=== PATIENT | male | born 1955 | race African-American/Black ===

== ENCOUNTER 2022-10-12 23:57 | Inpatient (IN) | payer MEDICARE, MEDICAID ==
[~2022-10-12] VITALS: Ht 170.2 cm; Wt 64.9 kg
[2022-10-13] MEDS ORDERED: SODIUM CHLORIDE 0.9% 1000ML BAG (SEPSIS BOLUS) IV ONE (00:45)
[2022-10-13 01:16] LABS: BASOPHILS % 0.5 % (0.0-2.0); EOSINOPHILS % 1.2 % (0.0-5.0); HEMATOCRIT. 40.7 % (42.0-52.0); HEMOGLOBIN. 13.6 g/dL (14.0-18.0); LYMPHOCYTES % 13.4 % (20.0-50.0); MEAN CORPUSCULAR HEMOGLOBIN 31.3 pg (28.0-32.0); MEAN CORPUSCULAR VOLUME 93.8 fL (80.0-94.0); MEAN PLATELET VOLUME 8.2 fl (7.4-10.4); MONOCYTES % 5.7 % (2.0-8.0); NEUTROPHILS % 79.2 % (40.0-76.0); PLATELET 283 x1000/uL (130-400); RED BLOOD CELL COUNT 4.35 mill/uL (4.7-6.1); RED CELL DISTRIBUTION WIDTH 14.4 % (11.6-14.6)
[2022-10-13 01:44] LABS: CHLORIDE 110 mEq/L (98-107)
[2022-10-13] MEDS ORDERED: ASPIRIN 81MG TABLET PO ONE (02:30)
[2022-10-13] MEDS ORDERED: ONDANSETRON HCL 4MG/2ML INJ IV PRN (19:00)
[2022-10-13] MEDS ORDERED: HYDROCODONE/ACETAMINOPHEN 5/325MG TABLET PO PRN (19:00)
[2022-10-13] MEDS ORDERED: ACETAMINOPHEN 325MG TABLET PO PRN (19:00)
[2022-10-13] MEDS ORDERED: DOCUSATE SODIUM 100MG CAPSULE PO PRN (19:00)
[2022-10-13] MEDS ORDERED: NALOXONE HCL 0.4MG/ML VIAL IV PRN (19:15)
[2022-10-13 20:00] VITALS: BP 151/62; PULSE 82; RESP 18; TEMP 98.1
[2022-10-13] MEDS: ENOXAPARIN 40MG/0.4ML SYR SUBCUT SCH (21:06)
[2022-10-14] VITALS (7 sets, daily range): BP systolic 123–157; BP diastolic 50–71; PULSE 57–82; RESP 17–22; TEMP 97.1–98.1
[2022-10-14 04:58] LABS: CLARITY URINE CLEAR (CLEAR); COLOR URINE YELLOW (YELLOW); KETONES URINE NEGATIVE (NEGATIVE); LEUKOCYTE ESTERASE URINE NEGATIVE (NEGATIVE); NITRITE URINE NEGATIVE (NEGATIVE); OCCULT BLOOD URINE NEGATIVE (NEGATIVE); PROTEIN URINE NEGATIVE (NEGATIVE); SPECIFIC GRAVITY URINE 1.022 (1.005-1.030); UROBILINOGEN URINE 0.2 E.U./dL (0.2-1.0)
[2022-10-14 05:38] LABS: *AMPHETAMINES SCREEN URINE NEGATIVE (NEGATIVE); *BARBITURATES SCREEN URINE NEGATIVE (NEGATIVE); *BENZODIAZEPINES SCREEN URINE NEGATIVE (NEGATIVE); *COCAINE SCREEN URINE NEGATIVE (NEGATIVE); CANNABINOID URINE SCREEN PRESUMTIVE POSITIVE (NEGATIVE); METHADONE URINE SCREEN NEGATIVE (NEGATIVE); OPIATES URINE SCREEN NEGATIVE (NEGATIVE); PHENCYCLIDINE URINE SCREEN NEGATIVE (NEGATIVE)
[2022-10-14 06:04] LABS: BASOPHILS % 1.3 % (0.0-2.0); EOSINOPHILS % 1.9 % (0.0-5.0); HEMATOCRIT. 39.6 % (42.0-52.0); HEMOGLOBIN. 13.2 g/dL (14.0-18.0); MEAN CORPUSCULAR HEMOGLOBIN 31.3 pg (28.0-32.0); MEAN CORPUSCULAR VOLUME 93.7 fL (80.0-94.0); MEAN PLATELET VOLUME 8.4 fl (7.4-10.4); MONOCYTES % 6.8 % (2.0-8.0); PLATELET 275 x1000/uL (130-400); RED BLOOD CELL COUNT 4.23 mill/uL (4.7-6.1); RED CELL DISTRIBUTION WIDTH 14.5 % (11.6-14.6)
[2022-10-14 06:09] LABS: CHLORIDE 111 mEq/L (98-107)
[2022-10-14 06:25] LABS: PHOSPHORUS 3.1 mg/dL (2.5-4.9); T4 FREE 0.86 ng/dL (0.76-1.46)
[2022-10-14] MEDS: SODIUM CHLORIDE 0.9% 1,000 ML IV SCH ×2 (12:48)
[2022-10-14] MEDS: ENOXAPARIN 40MG/0.4ML SYR SUBCUT SCH (20:56)
[2022-10-15] VITALS: BP_SYST 126; BP_SYST 136; BP_SYST 143; BP_SYST 150; BP_DIAS 47; BP_DIAS 48; BP_DIAS 59; BP_DIAS 64; PULSE 70; PULSE 71; PULSE 75; RESP 20; RESP 22; TEMP 97.1
[2022-10-15 04:00] VITALS: BP 139/60; PULSE 69; RESP 20; TEMP 97.1
[2022-10-15] MEDS: SODIUM CHLORIDE 0.9% 1,000 ML IV SCH ×2 (04:08→20:01)
[2022-10-15 05:55] LABS: BASOPHILS % 0.9 % (0.0-2.0); HEMATOCRIT. 39.6 % (42.0-52.0); HEMOGLOBIN. 13.2 g/dL (14.0-18.0); MEAN CORPUSCULAR HEMOGLOBIN 31.5 pg (28.0-32.0); MEAN CORPUSCULAR VOLUME 94.5 fL (80.0-94.0); MEAN PLATELET VOLUME 8.5 fl (7.4-10.4); MONOCYTES % 9.2 % (2.0-8.0); NEUTROPHILS % 55.9 % (40.0-76.0); PLATELET 262 x1000/uL (130-400); RED BLOOD CELL COUNT 4.19 mill/uL (4.7-6.1); RED CELL DISTRIBUTION WIDTH 14.4 % (11.6-14.6)
[2022-10-15 06:10] LABS: CHLORIDE 110 mEq/L (98-107)
[2022-10-15 08:00] VITALS: BP_SYST 121; BP_SYST 126; BP_SYST 129; BP_DIAS 51; BP_DIAS 52; BP_DIAS 53; PULSE 70; RESP 22; TEMP 98.1
[2022-10-15 12:00] VITALS: BP_SYST 107; BP_SYST 113; BP_SYST 119; BP_DIAS 51; BP_DIAS 60; BP_DIAS 68; RESP 22; TEMP 98.6
[2022-10-15 16:00] VITALS: BP_SYST 116; BP_SYST 125; BP_SYST 135; BP_DIAS 49; BP_DIAS 74
[2022-10-15 20:00] VITALS: BP 119/52; PULSE 80; RESP 19; TEMP 97.9
[2022-10-15] MEDS: RISPERIDONE 0.5MG TABLET PO SCH (20:52)
[2022-10-15] MEDS: ENOXAPARIN 40MG/0.4ML SYR SUBCUT SCH (20:56)
[2022-10-16] VITALS (8 sets, daily range): BP systolic 95–148; BP diastolic 48–96; PULSE 61–78; RESP 18–20; TEMP 97–98.4; O2SAT 96
[2022-10-16] MEDS: RISPERIDONE 0.5MG TABLET PO SCH (21:07)
[2022-10-16] MEDS: ENOXAPARIN 40MG/0.4ML SYR SUBCUT SCH (21:07)
[2022-10-17 00:34] VITALS: BP 103/53; PULSE 63; RESP 19; TEMP 97.9
[2022-10-17 04:00] VITALS: BP 110/53; PULSE 64; RESP 20; TEMP 97.9
[2022-10-17 08:00] VITALS: BP_SYST 106; BP_SYST 107; BP_SYST 133; BP_DIAS 52; BP_DIAS 57; BP_DIAS 73; PULSE 71; RESP 17; TEMP 97.3
[2022-10-17 12:00] VITALS: BP 102/54; PULSE 61; RESP 20; TEMP 97.9
== END 2022-10-17 14:28 | disposition home health service (06) | DRG 48 ==
LOC: ER 10-13 00:06 → 7WST 10-13 03:45
PROVIDERS: ADMIT Internal Medicine; ATTEND Internal Medicine
DX: G90.8 Other disorders of autonomic nervous system (principal); E44.1 Mild protein-calorie malnutrition; I95.9 Hypotension, unspecified; Z68.22 Body mass index [BMI] 22.0-22.9, adult
CPT/HCPCS: 36415; 71045; 80048; 80053; 80076; 80305; 81003; 83605; 83735; 84100; 84145; 84439; 84443; 84484; 85025; 93005; 93306; 93880; 97162; 99285; J1650; J7030

== ENCOUNTER 2023-08-11 01:49 | Emergency (ER) | payer MEDICARE, MEDICAID ==
[~2023-08-11] VITALS: Ht 175.3 cm; Wt 75.0 kg
[2023-08-11 01:59] VITALS: BP 152/57; PULSE 81; RESP 16; TEMP 97.7; O2SAT 99
== END 2023-08-11 02:17 | disposition home or self-care (01) ==
LOC: ER 01:53
DX: R53.1 Weakness (principal)
CPT/HCPCS: 82962; 93005; 99283

== ENCOUNTER 2023-10-06 04:19 | Emergency (ER) | payer MEDICARE, MEDICAID ==
[~2023-10-06] VITALS: Ht 172.7 cm; Wt 54.0 kg
[2023-10-06 04:27] VITALS: BP 146/70; PULSE 63; RESP 18; TEMP 98.7; O2SAT 98
== END 2023-10-06 07:49 | disposition left against medical advice (07) ==
LOC: ER 04:24
DX: Z00.00 Encounter for general adult medical examination without abnormal findings (principal); Z53.21 Procedure and treatment not carried out due to patient leaving prior to being seen by health care provider